=== PATIENT | male | born 1970 | race Hispanic/Latino ===

== ENCOUNTER 2020-01-21 22:29 | Inpatient (IN) | payer SELFPAY ==
[2020-01-21] MEDS ORDERED: ONDANSETRON 4 MG/2 ML VIAL ONE (22:30)
[2020-01-21] MEDS ORDERED: MORPHINE 4 MG/ML SYR ONE ×2 (22:30→22:42)
[2020-01-21] MEDS ORDERED: NA CHLORIDE 0.9% 1,000 ML ONE ×2 (22:42→22:50)
[2020-01-21] MEDS ORDERED: TETANUS & DIPHTHERIA TOX,ADULT 0.5 ML VIAL ONE (22:50)
[2020-01-21] MEDS ORDERED: CEFAZOLIN/SWI 1gm 1 GM/10 ML SYR ONE (22:50)
[2020-01-21] MEDS ORDERED: Levofloxacin 750mg IV 750 MG/150 ML BAG IV ONE (22:50)
[2020-01-21 22:52] LABS: Absolute Lymphocytes (CBC) 4.9 K/uL (0.7-4.9); Basophils % 0.6 % (0-1.3); Hematocrit 36.1 % (39.6-49.0); Lymphocytes % 30.8 % (15.3-44.8); MPV 7.7 fL (7.6-11.3); RBC Red Blood Cell Count 4.06 M/uL (4.33-5.43)
[2020-01-21 23:07] LABS: Albumin 3.5 g/dL (3.4-5.0); Bilirubin Total 0.3 mg/dL (0.2-1.0); Potassium 3.6 mmol/L (3.5-5.1); Protein, Total 7.9 g/dL (6.4-8.2)
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
[2020-01-22] MEDS ORDERED: HYDROMORPHONE HCL 1 MG/ML INJ ONE (00:12)
[2020-01-22] MEDS ORDERED: ONDANSETRON 4 MG/2 ML VIAL ONE (00:12)
[2020-01-22] MEDS ORDERED: ONDANSETRON 4 MG/2 ML VIAL IV PRN (00:44)
[2020-01-22] MEDS ORDERED: ACETAMINOPHEN 325 MG TABLET PO PRN (00:50)
[2020-01-22 01:17] VITALS: BMI 29.2
[2020-01-22] MEDS: NA CHLORIDE 0.9% 1,000 ML IV SCH ×4 (01:23→16:51)
[2020-01-22] MEDS ORDERED: CEFAZOLIN SODIUM 1 GM/VIAL ONE (01:55)
[2020-01-22] MEDS ORDERED: NA CHLORIDE 0.9% 50 ML ONE (05:16)
[2020-01-22] MEDS ORDERED: CEFAZOLIN/NS 1gm 1 GM/50 ML BAG IVPB SCH (06:00)
[2020-01-22] MEDS: MORPHINE 4 MG/ML SYR IV PRN ×3 (06:38→22:17)
--- NOTE | 2020-01-22 09:53 | RAD REPORT ---
EXAM DESCRIPTION: Charlotte Xiao Left01/21/2020 11:08 pm CLINICAL HISTORY: Left leg pain status post injury FINDINGS: No fracture is seen Posterior soft tissue laceration involves the mid aspect of the leg
[2020-01-22] MEDS ORDERED: CEFAZOLIN/SWI 1gm 1 GM/10 ML SYR IVP SCH (12:00)
[2020-01-22] MEDS: CEFAZOLIN/SWI 1gm 1 GM/10 ML SYR IVP SCH (16:51)
[2020-01-23] MEDS: CEFAZOLIN/SWI 1gm 1 GM/10 ML SYR IVP SCH ×3 (00:26→16:52)
[2020-01-23] MEDS: NA CHLORIDE 0.9% 1,000 ML IV SCH ×3 (00:26→16:57)
[2020-01-23 04:51] LABS: Absolute Lymphocytes (CBC) 2.5 K/uL (0.7-4.9); Basophils % 0.5 % (0-1.3); Hematocrit 27.7 % (39.6-49.0); Lymphocytes % 25.5 % (15.3-44.8); MPV 7.9 fL (7.6-11.3); RBC Red Blood Cell Count 3.06 M/uL (4.33-5.43)
[2020-01-23 05:02] LABS: BUN Blood Urea Nitrogen 9 mg/dL (7-18); Bicarbonate 28 mmol/L (21-32); Glucose Level 107 mg/dL (74-106); Potassium 3.7 mmol/L (3.5-5.1); Sodium Level 141 mmol/L (136-145)
[2020-01-23] MEDS: MORPHINE 4 MG/ML SYR IV PRN ×2 (05:17→15:12)
[2020-01-23 17:29] VITALS: BP 109/70; TEMP 98.6
[2020-01-23 19:07] VITALS: O2SAT 94
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
--- NOTE | 2020-01-24 07:04 | EKG ---
Test Date: 2020-01-21 Test Time: 23:24:21 Regional Sales Representative: VIVEK MEASUREMENT RESULTS: Intervals: Rate: 109 IN: 138 QRSD: 72 QT: 320 QTc: 430 [place]: P: 59 IN: 138 QRS: 15 T: 25 INTERPRETIVE STATEMENTS: Sinus tachycardia Possible Anterior infarct, age undetermined Abnormal ECG No previous ECG available for comparison Electronically Signed On 01-24-20 07:00:42 CDT by Srinivasa Fernández
== END 2020-01-23 22:45 | disposition home or self-care (01) | DRG 605 ==
LOC: ER 22:29 → 2ND 01-22 00:34 → OBSVTOIN 01-22 00:34
PROVIDERS: ADMIT Surgery; ATTEND Surgery
DX: S81.812A Laceration without foreign body, left lower leg, initial encounter (principal); F17.210 Nicotine dependence, cigarettes, uncomplicated
CPT/HCPCS: 36415; 80048; 80053; 83605; 85025; 87070; 87205; 90471; 90714; 93005; 96365; 96375; 99285; J0690; J1170; J2405; J7030